=== PATIENT | female | born 1965 | race American Indian/Alaskan Native ===

== ENCOUNTER 2017-08-26 19:50 | Inpatient (IN) | payer MEDICARE ==
[2017-08-26] MEDS ORDERED: MORPHINE IV ONE (20:23)
[2017-08-26] MEDS ORDERED: TORADOL IV ONE (20:23)
[2017-08-26] MEDS ORDERED: ZOFRAN IV ONE (20:23)
[2017-08-26 20:41] LABS: Basophils % (Auto) 0.4 % (0.0-1.8); Eosinophils # (Auto) 0.1 K/mm3 (0.0-0.4); Eosinophils % (Auto) 0.8 % (0.0-4.3); Hematocrit 35.8 % (30.3-42.9); Hemoglobin 11.4 gm/dl (10.1-14.3); Lymphocytes # (Auto) 0.9 K/mm3 (1.2-5.4); Lymphocytes % (Auto) 8.2 % (13.4-35.0); Mean Corpuscular HGB Conc 32 % (30-34); Mean Corpuscular Hemoglobin 28 pg (28-32); Mean Corpuscular Volume 88 fl (79-97); Monocytes # (Auto) 1.2 K/mm3 (0.0-0.8); Monocytes % (Auto) 11.3 % (0.0-7.3); Platelet Count 216 K/mm3 (140-440); Red Blood Count 4.06 M/mm3 (3.65-5.03); Red Cell Distribution Width 14.3 % (13.2-15.2)
[2017-08-26] MEDS ORDERED: TYLENOL PO ONE (20:47)
--- NOTE | 2017-08-26 20:47 | XRay Report ---
FINAL REPORT PROCEDURE: Portable upright chest x-ray TECHNIQUE: Chest radiograph anteroposterior view. CPT 72343 HISTORY: Short of breath COMPARISON: No prior studies are available for comparison. FINDINGS: The heart is magnified due to projection although appears to be mildly enlarged. Pulmonary vasculature not significantly distended. Interstitial markings are diffusely coarsened. There is some patchy alveolar densities in the left upper lobe laterally also in the right and left lung bases. There is an asymmetric density in the apex of the right lung which appears to be pleural based measuring approximately 3.4 x 2.2 centimeters. This may represent additional infiltrate or atelectasis. I cannot exclude a small mass. IMPRESSION: Abnormal parenchymal densities visualized in both lungs as described suggesting scattered areas of atelectasis, infiltrates and/or parenchymal scarring/fibrosis. There is however a pleural-based density in the apex of the right lung as described. This may represent additional atelectasis or infiltrate however I cannot exclude a small mass. Consider short term follow-up chest x-ray to ensure this resolves or CT scan to evaluate the chest further. Cardiomegaly..
[2017-08-26] MEDS ORDERED: ROCEPHIN/NS 1 GM/50 ML 1 GM/50 ML BAG IV ONE (20:51)
[2017-08-26] MEDS ORDERED: ZITHROMAX 500 MG in NACL 0.9% 250ML 250 ML IV ONE (20:51)
[2017-08-26] MEDS ORDERED: NACL 0.9% 1000 ML 1,000 ML IV ONE (20:52)
[2017-08-26] MEDS ORDERED: XOPENEX IH ONE (20:53)
[2017-08-26] MEDS ORDERED: ATROVENT IH ONE (20:53)
[2017-08-26 21:15] LABS: Creatine Kinase MB 1.3 ng/mL (0.0-4.0)
[2017-08-26 21:17] LABS: BUN/Creatinine Ratio 20; Blood Urea Nitrogen 14 mg/dL (7-17); Calcium 9.2 mg/dL (8.4-10.2); Hemolysis Index 12
[2017-08-26] MEDS ORDERED: ROCEPHIN 1 GM in NACL 0.9% 20 ML IV ONE (22:00)
--- NOTE | 2017-08-26 23:03 | Emergency Department Report ---
ED Shortness of Breath HPI - General Chief Complaint: Dyspnea/Respdistress Stated Complaint: DENISSE Time Seen by Provider: 08/26/17 20:03 Source: patient Mode of arrival: Wheelchair Limitations: No Limitations - History of Present Illness Initial Comments: 52 year old female with a past medical history sarcoidosis, breast cancer currently remission and treated with left-sided mastectomy, and hypertension presents to the hospital complains of shortness of breath for a couple days it increased today. Symptoms worse with exertion. Patient had a right sided sharp pain radiating to the back that is worth with cough. Patient having a productive cough but denies fever. Patient takes 2 L of oxygen at home. Patient recently moved here from [place] August 08 and traveled via car. She denies calf tenderness or leg edema. Patient also complains of sore throat. Her transportation solutions manager is Dr. Pennington - Related Data Allergies Allergy/AdvReac Type Severity Reaction Status Date / Time morphine Allergy Anaphylaxis Verified 08/26/17 23:35 ED Review of Systems ROS: Stated complaint: DENISSE Other details as noted in HPI Comment: All other systems reviewed and negative Other: Constitutional: No fevers chills Eyes: No eye pain visual changes ENT: No ear pain or throat pain Neck: Denies pain Respiratory: as per hpi Cardiovascular: Denies palpitations, syncope GI: Denies abdominal pain, nausea, vomiting, diarrhea : Denies dysuria, urinary frequency, or urgency Musculoskeletal: Denies back pain, joint swelling Skin: Denies rash, lesions, erythema Neurologic: Denies headache, numbness, weakness Psychiatric: Denies suicidal ideation, hallucinations ED Past Medical Hx - Past Medical History Hx Hypertension: Yes Hx of Cancer: Yes (breast) Additional medical history: sarcoidosis - Surgical History Additional Surgical History: L mastectomy, hysterectomy - Social History Smoking Status: Former Smoker Substance Use Type: None ED Physical Exam - General Limitations: No Limitations - Other Other exam information: General: No limitations, mild respiratory distress Head exam: Atraumatic, normocephalic Eyes exam: Normal appearance ENT: Moist mucous membrane, normal oropharynx Neck exam: Normal inspection, full range of motion, no meningismus nontender Respiratory exam: Diminished breath sounds bilaterally with tachypnea and mild accessory muscle, able to speak in sentences Cardiovascular: Tachycardic regular rhythm Abdomen: Soft, nondistended, and nontender, with normal bowel sounds, no rebound, or guarding Extremity: Full range of motion normal inspection no deformity, no calf tenderness unilateral edema Back: Normal Inspection, full range of motion, no tenderness Neurologic: Alert, oriented x3, cranial nerves intact, no motor or sensory deficit Psychiatric: normal affect, normal mood Skin: Warm, dry, intact ED Course Vital Signs 08/26/17 08/26/17 08/26/17 19:42 19:51 19:52 Temperature Pulse Rate 118 H 120 H Pulse Rate [ Anterior Bilateral Throughout] Respiratory 32 H 17 Rate Respiratory Rate [Anterior Bilateral Throughout] Blood Pressure O2 Sat by Pulse 100 100 100 Oximetry 08/26/17 08/26/17 08/26/17 20:01 20:11 20:21 Temperature Pulse Rate 125 H 110 H 108 H Pulse Rate [ Anterior Bilateral Throughout] Respiratory 29 H 29 H 16 Rate Respiratory Rate [Anterior Bilateral Throughout] Blood Pressure 108/53 108/66 108/66 O2 Sat by Pulse 100 100 100 Oximetry 08/26/17 08/26/17 08/26/17 20:30 20:41 20:48 Temperature 100.9 F H Pulse Rate 107 H 101 H Pulse Rate [ Anterior Bilateral Throughout] Respiratory 20 24 Rate Respiratory Rate [Anterior Bilateral Throughout] Blood Pressure 104/60 104/60 O2 Sat by Pulse 100 100 Oximetry 08/26/17 08/26/17 08/26/17 21:01 21:21 21:56 Temperature Pulse Rate Pulse Rate [ 97 H 112 H Anterior Bilateral Throughout] Respiratory 26 H Rate Respiratory 20 19 Rate [Anterior Bilateral Throughout] Blood Pressure O2 Sat by Pulse 100 Oximetry ED Medical Decision Making - Lab Data Result diagrams: 08/26/17 20:07 08/26/17 20:07 Lab Results 08/26/17 08/26/17 08/26/17 Range/Units 20:07 20:07 20:07 WBC 10.5 (4.5-11.0) K/mm3 RBC 4.06 (3.65-5.03) M/mm3 Hgb 11.4 (10.1-14.3) gm/dl Hct 35.8 (30.3-42.9) % MCV 88 (79-97) fl MCH 28 (28-32) pg MCHC 32 (30-34) % RDW 14.3 (13.2-15.2) % Plt Count 216 (140-440) K/mm3 Lymph % (Auto) 8.2 L (13.4-35.0) % [place] % (Auto) 11.3 H (0.0-7.3) % Eos % (Auto) 0.8 (0.0-4.3) % Baso % (Auto) 0.4 (0.0-1.8) % Lymph # 0.9 L (1.2-5.4) K/mm3 [place] # 1.2 H (0.0-0.8) K/mm3 Eos # 0.1 (0.0-0.4) K/mm3 Baso # 0.0 (0.0-0.1) K/mm3 Seg Neutrophils % 79.3 H (40.0-70.0) % Seg Neutrophils # 8.3 H (1.8-7.7) K/mm3 D-Dimer 553.36 H (0-234) ng/mlDDU Sodium 144 (137-145) mmol/L Potassium 3.9 (3.6-5.0) mmol/L Chloride 98.3 (98-107) mmol/L Carbon Dioxide 26 (22-30) mmol/L Anion Gap 24 mmol/L BUN 14 (7-17) mg/dL Creatinine 0.7 (0.7-1.2) mg/dL Estimated GFR > 60 ml/min BUN/Creatinine Ratio 20 % Glucose 117 H (65-100) mg/dL Calcium 9.2 (8.4-10.2) mg/dL Total Creatine Kinase 71 (30-135) units/L CK-MB (CK-2) 1.3 (0.0-4.0) ng/mL CK-MB (CK-2) Rel Index 1.8 (0-4) Troponin T < 0.010 (0.00-0.029) ng/mL NT-Pro-B Natriuret Pep 2944 H (0-900) pg/mL - Radiology Data Radiology results: report reviewed read by radiologist Chest x-ray: Abnormal parenchymal density is visualized in both lungs as described suggesting scattered areas of atelectasis, infiltrates and/or parenchymal scarring/fibrosis. There is however a pleural based density in the apex of the right lung as described. This may represent additional atelectasis or infiltrate however mass cannot be excluded CT angiogram chest: study limited due to breathing motion artifact. No definite filling defects. Small bilateral pleural effusions right side greater than the left. There is diffuse mediastinal and hilar adenopathy as well as diffuse groundglass densities impression peribronchial densities bilaterally likely related to the patient's history of sarcoidosis. I cannot exclude superimposed acute infiltrates - Medical Decision Making Plan to admit patient to hospital for the treatment of infiltrates versus chronic scarring as well as associated pleural effusions with tachypnea, hypoxia , shortness of breath noted in the ED. Patient treated with nebs, Solu-Medrol, and antibiotics. Cultures pending. - Differential Diagnosis pneumonia, sarcoidosis, CHF, pleural effusion, bronchitis, sarcoidosis, PE Critical Care Time: No Critical care attestation.: If time is entered above; I have spent that time in minutes in the direct care of this critically ill patient, excluding procedure time. ED Disposition Clinical Impression: Dyspnea, Sarcoidosis, Pleural effusion, bilateral, Pulmonary infiltrates, Hx of breast cancer, Hypertension Disposition: OP ADMIT IP TO THIS HOSP Is pt being admited?: Yes Condition: Stable Time of Disposition: 00:13
--- NOTE | 2017-08-26 23:08 | Cat Scan Report ---
FINAL REPORT PROCEDURE: CT ANGIO CHEST TECHNIQUE: Computerized tomographic angiography of the chest was performed during the IV injection of iodinated nonionic contrast including image processing. The image data was postprocessed using 2-dimensional multiplanar reformatted (MPR) and 3-dimensional (MIP and/or volume rendered) techniques. HISTORY: sob,hx of sarcoid COMPARISON: No prior studies are available for comparison. FINDINGS: Pulmonary outflow tract, right and left main pulmonary arteries and their proximal branches: The pulmonary outflow tract right and left main pulmonary arteries are well-visualized and appear clear. Peripheral branches are less well visualized due to breathing motion artifact. No definite filling defects are seen that would suggest pulmonary embolus. Pericardium: No evidence of pericardial effusion. Thoracic aorta: No evidence of aneurysmal dilatation or dissection. Coronary arteries: Are partially calcified indicating atherosclerotic disease. Mediastinum and hilar regions: There is extensive adenopathy throughout the hilar and mediastinal regions with lymph nodes measuring up to 2.6 x 1.3 centimeters. Lung [place]: Small bilateral pleural effusions are visualized. The right side is larger than the left. Extensive ground-glass densities scattered throughout both lungs. There is mild increased peribronchial density in the right upper lobe. No dense consolidation are identified. Upper abdomen: No acute or focal abnormality is seeen. Other: No acute bony abnormalities are identified. Decreased density and prominent vertically oriented trabecula I seen in the T12 vertebral body suggesting vertebral body hemangioma measuring 2.4 centimeter transverse, 1.9 centimeter AP and 1.4 centimeter craniocaudal dimension.. IMPRESSION: Limited study due to breathing motion artifact. No definite filling defects are seen that would suggest pulmonary embolus. There are small bilateral pleural effusions right side greater than left. There is diffuse mediastinal and hilar adenopathy as well as diffuse ground-glass densities and patchy peribronchial densities bilaterally likely related to the patient's history of sarcoidosis. I cannot exclude superimposed acute infiltrates.
[2017-08-27] MEDS ORDERED: MILK OF MAGNESIA PO PRN (00:57)
[2017-08-27] MEDS ORDERED: ZOFRAN IV PRN (00:57)
[2017-08-27] MEDS ORDERED: TYLENOL PO PRN (00:57)
[2017-08-27] MEDS ORDERED: DULCOLAX PR PRN (00:57)
--- NOTE | 2017-08-27 01:01 | History and Physical Report ---
History of Present Illness Date of examination: 08/27/17 History of present illness: 52-year-old woman with a history of sarcoidosis, on home oxygen, hypertension, breast cancer comes emergency room with complaints of shortness of breath that started 3 days ago. Also complaining of a nonproductive cough, subjective fever and chills. Her primary. Started her on azithromycin yesterday and today cough syrup which she has not started taking. Review Of Systems: Constitutional: no weight loss Ears, eyes, nose, mouth and throat: no nasal congestion, no nasal discharge, no sinus pressure, blurry vision, diplopia Neck: No neck pain or rigidity. Cardiovascular: No chest pain, palpitations Respiratory: + shortness of breath, cough Gastrointestinal: No abdominal pain, hematochezia Genitourinary : no dysuria, frequency , hematuria Musculoskeletal: no muscle ache Integumentary: no rash, no pruritis Neurological: no parathesias, focal weakness Endocrine: no cold or heat intolerance, no polyuria or polydipsia Hematologic/Lymphatic: no easy bruising, no easy bleeding, no gland swelling Allergic/Immunologic: no urticaria, no angioedema. PAST MEDICAL HISTORY:sarcoidosis, hypertension, breast cancer PAST SURGICAL HISTORY: Left mastectomy, hysterectomy FAMILY HISTORY:hypertension SOCIAL HISTORY: Denies alcohol, tobacco, drugs Medications and Allergies Allergies Allergy/AdvReac Type Severity Reaction Status Date / Time morphine Allergy Anaphylaxis Verified 08/26/17 23:35 Active Meds: Active Medications Sodium Chloride (Nacl 0.9% 1000 Ml) 1,000 mls @ 125 mls/hr IV ONCE ONE Stop: 08/27/17 04:51 Last Admin: 08/26/17 22:33 Dose: Not Given Exam - Physical Exam Narrative exam: Gen. appearance: Patient lying in bed in no acute distress HEENT: Normocephalic/atraumatic, pupils equal round reactive to light, extra occular movement intact, no scleral icterus, no JVD or thyromegaly or nodule, neck is supple, mucous membrane moist, no erythema or exudate Heart: S1-S2, regular rate and rhythm Lungs: Wheezing bilateral breathing comfortable Abdomen: Positive bowel sounds, nontender, nondistended, no organomegaly Extremities: No edema, cyanosis, clubbing Neuro:: Oriented 3 , cranial nerves II-12 intact, speech, motor intact Skin: No rash, nodules, warm dry - Constitutional Vitals: Temp Pulse Resp BP Pulse Ox 100.9 F H 112 H 19 104/60 100 08/26/17 20:48 08/26/17 21:56 08/26/17 21:56 08/26/17 20:41 08/26/17 21:01 Results - Labs CBC & Chem 7: 08/26/17 20:07 08/26/17 20:07 Labs: Abnormal lab results 08/26/17 08/26/17 08/26/17 Range/Units 20:07 20:07 20:07 Lymph % (Auto) 8.2 L (13.4-35.0) % [place] % (Auto) 11.3 H (0.0-7.3) % Lymph # 0.9 L (1.2-5.4) K/mm3 [place] # 1.2 H (0.0-0.8) K/mm3 Seg Neutrophils % 79.3 H (40.0-70.0) % Seg Neutrophils # 8.3 H (1.8-7.7) K/mm3 D-Dimer 553.36 H (0-234) ng/mlDDU Glucose 117 H (65-100) mg/dL NT-Pro-B Natriuret Pep 2944 H (0-900) pg/mL - Imaging and Cardiology EKG: image reviewed Chest x-ray: image reviewed CT scan - chest: report reviewed Assessment and Plan Assessment Acute bronchitis Hypertension Sarcoidosis Breast cancer Plan Admit to medicine Start high-dose steroids, azithromycin, nebulizer treatments Continue appropriate outpatient medications DVT prophylaxis
[2017-08-27] MEDS: DUONEB *Not for PRN Use IH SCH ×4 (02:53→19:58)
[2017-08-27] MEDS ORDERED: DUONEB *Not for PRN Use IH ONE (02:54)
[2017-08-27] MEDS ORDERED: ZITHROMAX 500 MG in NACL 0.9% 250ML 250 ML IV ONE (10:00)
[2017-08-27] MEDS: LOVENOX SUB-Q SCH (10:23)
[2017-08-27] MEDS ORDERED: MOTRIN PO PRN (13:24)
[2017-08-27] MEDS: THERAGRAN-M Tab PO SCH (15:30)
--- NOTE | 2017-08-27 17:19 | Event Note ---
Date: 08/27/17 Patient was seen and evaluated this morning, patient of admissions this morning , continue management per H/P.
[2017-08-27] MEDS: GUAIFENESIN DM SYRUP PO PRN (20:50)
[2017-08-28] MEDS: DUONEB *Not for PRN Use IH SCH ×4 (02:10→21:02)
[2017-08-28 06:19] LABS: Hemoglobin 10.1 gm/dl (10.1-14.3); Mean Corpuscular HGB Conc 33 % (30-34); Mean Corpuscular Hemoglobin 29 pg (28-32); Mean Corpuscular Volume 88 fl (79-97); Platelet Count 204 K/mm3 (140-440); Red Blood Count 3.54 M/mm3 (3.65-5.03); Red Cell Distribution Width 14.2 % (13.2-15.2)
[2017-08-28 06:37] LABS: BUN/Creatinine Ratio 23; Blood Urea Nitrogen 14 mg/dL (7-17); Hemolysis Index 3
[2017-08-28 07:37] LABS: Basophils % (Manual) 0 % (0.0-1.8); Eosinophils % (Manual) 0 % (0.0-4.3); Total Cells Counted 100
[2017-08-28 07:38] LABS: Anisocytosis 1+; Hypochromasia 1+; Large Platelets Few
[2017-08-28] MEDS: LOVENOX SUB-Q SCH (09:23)
[2017-08-28] MEDS: THERAGRAN-M Tab PO SCH (09:23)
[2017-08-28] MEDS: ZESTRIL PO SCH (09:49)
[2017-08-28] MEDS: PROTONIX PO SCH (09:49)
[2017-08-28] MEDS: LASIX PO SCH (09:49)
[2017-08-28] MEDS: K-DUR PO SCH (09:49)
[2017-08-28] MEDS: CLARITIN PO SCH (09:49)
[2017-08-28] MEDS ORDERED: POTASSIUM 20 MEQ PO SCH (10:00)
[2017-08-28] MEDS ORDERED: FLUTICASONE INTRANASAL SCH (10:00)
[2017-08-28] MEDS ORDERED: NON-FORMULARY (Lisinopril 20 MG) PO SCH (10:00)
[2017-08-28] MEDS ORDERED: NON-FORMULARY (Cetirizine Hcl 10 MG) PO SCH (10:00)
[2017-08-28] MEDS ORDERED: NON-FORMULARY (Omeprazole 40 MG) PO SCH (10:00)
[2017-08-28] MEDS: LEVAQUIN 750MG/150ML 750 MG/150 ML BAG IV SCH (11:29)
[2017-08-28] MEDS: FLONASE NS SCH (12:31)
--- NOTE | 2017-08-28 15:45 | Consultation ---
History of Present Illness Consult date: 08/28/17 Reason for consult: other (he was finallyFinal congestive in the hospital his hospital stay and assuming will be on U was reviewed. A 2, who presents with a 1 mm to be 183 divided understand why the) History of present illness: This 52 year old female admitted with shortness of breath and cough.Patient has a history of breast CA and Left Mastectomy.Patient also complaining right sided pleuritic chest pain.Patient recently travelled from [place]. Patient denies leg swelling or calf tenderness. Angio CT of chest Reported no PE. Extensive mediastinal and hilar adenopathy and parenchymal infiltrates.Patient also has history smoking 1 pack a day x 15 years. Stopped smoking in year 1999. 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 Past History Past Medical History: hypertension, sarcoidosis, other (History of breat CA.) Past Surgical History: mastectomy (Left Mastectomy.) Medications and Allergies Allergies Allergy/AdvReac Type Severity Reaction Status Date / Time morphine Allergy Anaphylaxis Verified 08/26/17 23:35 Home Medications Medication Instructions Recorded Confirmed Last Taken Type Albuterol 2.5 mg INHALATION Q4H PRN 08/28/17 08/28/17 08/27/17 10:00 History 2.5 mg Cetirizine HCl 10 mg PO DAILY 08/28/17 08/28/17 08/27/17 10:00 History 10 mg Fluticasone 1 spray INTRANASAL DAILY 08/28/17 08/28/17 08/27/17 10:00 History 1 spray Furosemide [Lasix TAB] 40 mg PO QDAY 08/28/17 08/28/17 08/27/17 10:00 History 40 mg Lisinopril 20 mg PO DAILY 08/28/17 08/28/17 08/27/17 10:00 History 20 mg Omeprazole 40 mg PO DAILY 08/28/17 08/28/17 08/26/17 10:00 History 40 mg Potassium 20 meq PO DAILY 08/28/17 08/28/17 08/27/17 10:00 History 20 meq Prednisone [predniSONE 10 mg 10 tab PO DAILY 08/28/17 08/28/17 08/27/17 10:00 History (6-Day Pack, 21 Tabs)] 10 mg Active Meds: Active Medications Acetaminophen (Tylenol) 650 mg PO Q4H PRN PRN Reason: Pain MILD(1-3)/Fever >100.5/[place] Albuterol/Ipratropium (Duoneb *Not For Prn Use*) 1 ampul IH Q6HRT [facility] Last Admin: 08/28/17 13:28 Dose: 1 ampul Bisacodyl (Dulcolax) 10 mg OR QDAY PRN PRN Reason: Constipation unrelieved by MOM Enoxaparin Sodium (Lovenox) 40 mg SUB-Q QDAY [facility] Last Admin: 08/28/17 09:23 Dose: 40 mg Fluticasone Propionate (Flonase) 50 mcg NS QDAY [facility] Last Admin: 08/28/17 12:31 Dose: 50 mcg Furosemide (Lasix) 40 mg PO QDAY [facility] Last Admin: 08/28/17 09:49 Dose: 40 mg Guaifenesin (Guaifenesin Dm Syrup) 20 ml PO Q4H PRN PRN Reason: Cough Last Admin: 08/27/17 20:50 Dose: 20 ml Levofloxacin/Dextrose (Levaquin 750mg/150ml) 750 mg in 150 mls @ 100 mls/hr IV Q24HR [facility] PRN Reason: Protocol Last Admin: 08/28/17 11:29 Dose: 100 mls/hr Ibuprofen (Motrin) 400 mg PO Q6H PRN PRN Reason: Pain, Mild (1-3) Last Admin: 08/27/17 15:30 Dose: 400 mg Lisinopril (Zestril) 20 mg PO QDAY [facility] Last Admin: 08/28/17 09:49 Dose: 20 mg Loratadine (Claritin) 10 mg PO DAILY [facility] Last Admin: 08/28/17 09:49 Dose: 10 mg Magnesium Hydroxide (Milk Of Magnesia) 30 ml PO Q4H PRN PRN Reason: Constipation Methylprednisolone Sodium Succinate (Solu-Medrol) 80 mg IV Q6H [facility] Last Admin: 08/28/17 11:29 Dose: Not Given Multivitamins/Minerals (Theragran-M Tab) 1 each PO QDAY [facility] Last Admin: 08/28/17 09:23 Dose: 1 each Ondansetron HCl (Zofran) 4 mg IV Q8H PRN PRN Reason: N/V unrelieved by Reglan Pantoprazole Sodium (Protonix) 40 mg PO DAILY [facility] Last Admin: 08/28/17 09:49 Dose: 40 mg Potassium Chloride (K-Dur) 20 meq PO QDAY [facility] Last Admin: 08/28/17 09:49 Dose: 20 meq Review of Systems Constitutional: fatigue Respiratory: cough, shortness of breath, pain on inspiration Physical Examination Vital signs: Vital Signs Pulse Ox 100 08/26/17 19:42 General appearance: no acute distress, alert Eyes: non-icteric ENT: oropharynx moist Neck: supple, no JVD Ascultation: Bilateral: rhonchi (Ocasional rhonchi) Cardiovascular: regular rate and rhythm Gastrointestinal: normoactive bowel sounds Integumentary: normal Extremities: no cyanosis, no edema Musculoskeletal: no deformities normal mental status, non-focal exam, pupils equal and round, CN II-XII normal anxious Results - Laboratory Findings CBC and BMP: 08/28/17 05:26 08/28/17 05:26 PT/INR, D-dimer D-Dimer 553.36 ng/mlDDU (0-234) H 08/26/17 20:07 Abnormal lab findings: Abnormal Labs 08/26/17 08/26/17 08/26/17 20:07 20:07 20:07 WBC RBC Lymph % (Auto) 8.2 L [place] % (Auto) 11.3 H Lymph # 0.9 L [place] # 1.2 H Seg Neutrophils % 79.3 H Seg Neuts % (Manual) Lymphocytes % (Manual) Seg Neutrophils # 8.3 H Seg Neutrophils # Man Lymphocytes # (Manual) D-Dimer 553.36 H Creatinine Glucose 117 H NT-Pro-B Natriuret Pep 2944 H 08/28/17 08/28/17 05:26 05:26 WBC 14.2 H RBC 3.54 L Lymph % (Auto) [place] % (Auto) Lymph # [place] # Seg Neutrophils % Seg Neuts % (Manual) 79.0 H Lymphocytes % (Manual) 5.0 L Seg Neutrophils # Seg Neutrophils # Man 11.2 H Lymphocytes # (Manual) 0.7 L D-Dimer Creatinine 0.6 L Glucose 160 H NT-Pro-B Natriuret Pep - Diagnostic Findings Chest x-ray: report reviewed (bilateral parenchymal infiltrates.), image reviewed CT scan - chest: report reviewed (Extensive bilateral and mediastinal adenopathy , Parenchymal infiltrates.), image reviewed Assessment and Plan This 52 year old female admitted with shortness of breath and cough.Patient has a history of breast CA and Left Mastectomy.Patient also complaining right sided pleuritic chest pain.Patient recently travelled from [place]. Patient denies leg swelling or calf tenderness. Angio CT of chest Reported no PE. Extensive mediastinal and hilar adenopathy and parenchymal infiltrates.Patient also has history smoking 1 pack a day x 15 years. Stopped smoking in year 1999. 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 - Patient Problems (1) Dyspnea Current Visit: Yes Status: Acute Plan to address problem: O2 2 litres via nasal canula. Albuterol/atrovent aerosol treatments q 6 hours. Continue I/V solumedral Continue S/C Lovenox. Continue Protonix. (2) Pulmonary infiltrates Current Visit: Yes Status: Acute Plan to address problem: Patient is on Levaquine. (3) Sarcoidosis Current Visit: Yes Status: Acute Plan to address problem: Continue I/V solumedral Obtaining CAROLINE level (4) Hx of breast cancer Current Visit: Yes Status: Acute Plan to address problem: Patient has Left mastectomy. No recurrence of breast CA. (5) Hypertension Current Visit: Yes Status: Acute Plan to address problem: Management as per primary care.
--- NOTE | 2017-08-28 16:17 | Progress Note ---
Assessment and Plan Assessment and plan: 52-year-old -[place]ian female with medical history significant for sarcoidosis Pulmonary sarcoidosis - CT showed involvement of the lung and lymph nodes - Patient is on Solu-Medrol - Pulmonary consulted Suspected bronchitis - On Levaquin Hypertension - Continue home medications Patient said had history of fluid overload - Continue home dose of Lasix DVT prophylaxis - chemical Disposition - Possibly discharge tomorrow after pulmonary evaluation History Interval history: Patient was seen and evaluated this morning, patient has attitude, complaining about everything. Not complaining any SOB, or chest pain. Hospitalist Physical - Physical exam Narrative exam: Not in cardiopulmonary distress. The patient appeared well nourished and normally developed. Vital signs as documented. Head exam is unremarkable. No scleral icterus . Neck is without jugular venous distension, thyromegaly, or carotid bruits. Lungs are clear to auscultation. Cardiac exam reveals regular rate and Rhythm. First and second heart sounds normal. No murmurs, rubs or gallops. Abdominal exam reveals normal bowel sounds, no masses, no organomegaly and no aortic enlargement. Extremities are nonedematous and both femoral and pedal pulses are normal. BODY ENGINEER: Alert and oriented 3. No focal weakness. - Constitutional Vitals: Temp Pulse Resp BP Pulse Ox 98.5 F 103 H 18 105/67 96 08/28/17 07:55 08/28/17 13:36 08/28/17 13:36 08/28/17 07:55 08/28/17 08:08 Results - Labs CBC & Chem 7: 08/28/17 05:26 08/28/17 05:26 Labs: Laboratory Last Values WBC 14.2 K/mm3 (4.5-11.0) H 08/28/17 05:26 RBC 3.54 M/mm3 (3.65-5.03) L 08/28/17 05:26 Hgb 10.1 gm/dl (10.1-14.3) 08/28/17 05:26 Hct 31.0 % (30.3-42.9) 08/28/17 05:26 MCV 88 fl (79-97) 08/28/17 05:26 MCH 29 pg (28-32) 08/28/17 05:26 MCHC 33 % (30-34) 08/28/17 05:26 RDW 14.2 % (13.2-15.2) 08/28/17 05:26 Plt Count 204 K/mm3 (140-440) 08/28/17 05:26 Lymph % (Auto) 8.2 % (13.4-35.0) L 08/26/17 20:07 Har[place]on % (Auto) 11.3 % (0.0-7.3) H 08/26/17 20:07 Eos % (Auto) 0.8 % (0.0-4.3) 08/26/17 20:07 Baso % (Auto) 0.4 % (0.0-1.8) 08/26/17 20:07 Lymph # 0.9 K/mm3 (1.2-5.4) L 08/26/17 20:07 Haralson # 1.2 K/mm3 (0.0-0.8) H 08/26/17 20:07 Eos # 0.1 K/mm3 (0.0-0.4) 08/26/17 20:07 Baso # 0.0 K/mm3 (0.0-0.1) 08/26/17 20:07 Add Manual Diff Complete 08/28/17 05:26 Total Counted 100 08/28/17 05:26 Seg Neutrophils % Senior Design Engineering Specialist 08/28/17 05:26 Seg Neuts % (Manual) 79.0 % (40.0-70.0) H 08/28/17 05:26 Band Neutrophils % 14.0 % 08/28/17 05:26 Lymphocytes % (Manual) 5.0 % (13.4-35.0) L 08/28/17 05:26 Reactive Lymphs % (Man) 0 % 08/28/17 05:26 Monocytes % (Manual) 2.0 % (0.0-7.3) 08/28/17 05:26 Eosinophils % (Manual) 0 % (0.0-4.3) 08/28/17 05:26 Basophils % (Manual) 0 % (0.0-1.8) 08/28/17 05:26 Metamyelocytes % 0 % 08/28/17 05:26 Myelocytes % 0 % 08/28/17 05:26 Promyelocytes % 0 % 08/28/17 05:26 Blast Cells % 0 % 08/28/17 05:26 Nucleated RBC % Not Reportable 08/28/17 05:26 Seg Neutrophils # 8.3 K/mm3 (1.8-7.7) H 08/26/17 20:07 Seg Neutrophils # Man 11.2 K/mm3 (1.8-7.7) H 08/28/17 05:26 Band Neutrophils # 2.0 K/mm3 08/28/17 05:26 Lymphocytes # (Manual) 0.7 K/mm3 (1.2-5.4) L 08/28/17 05:26 Abs React Lymphs (Man) 0.0 K/mm3 08/28/17 05:26 Monocytes # (Manual) 0.3 K/mm3 (0.0-0.8) 08/28/17 05:26 Eosinophils # (Manual) 0.0 K/mm3 (0.0-0.4) 08/28/17 05:26 Basophils # (Manual) 0.0 K/mm3 (0.0-0.1) 08/28/17 05:26 Metamyelocytes # 0.0 K/mm3 08/28/17 05:26 Myelocytes # 0.0 K/mm3 08/28/17 05:26 Promyelocytes # 0.0 K/mm3 08/28/17 05:26 Blast Cells # 0.0 K/mm3 08/28/17 05:26 WBC Morphology Not Reportable 08/28/17 05:26 Hypersegmented Neuts Not Reportable 08/28/17 05:26 Hyposegmented Neuts Not Reportable 08/28/17 05:26 Hypogranular Neuts Not Reportable 08/28/17 05:26 Smudge Cells Not Reportable 08/28/17 05:26 Toxic Granulation Not Reportable 08/28/17 05:26 Toxic Vacuolation Not Reportable 08/28/17 05:26 Dohle Bodies Not Reportable 08/28/17 05:26 Pelger-Huet Anomaly Not Reportable 08/28/17 05:26 Maribell Rods Not Reportable 08/28/17 05:26 Platelet Estimate Appears normal 08/28/17 05:26 Clumped Platelets Not Reportable 08/28/17 05:26 Plt Clumps, EDTA Not Reportable 08/28/17 05:26 Large Platelets Few 08/28/17 05:26 Giant Platelets Not Reportable 08/28/17 05:26 Platelet Satelliting Not Reportable 08/28/17 05:26 Plt Morphology Comment Not Reportable 08/28/17 05:26 RBC Morphology Not Reportable 08/28/17 05:26 Dimorphic RBCs Not Reportable 08/28/17 05:26 Polychromasia Not Reportable 08/28/17 05:26 Hypochromasia 1+ 08/28/17 05:26 Poikilocytosis Not Reportable 08/28/17 05:26 Anisocytosis 1+ 08/28/17 05:26 Microcytosis Not Reportable 08/28/17 05:26 Macrocytosis Not Reportable 08/28/17 05:26 Spherocytes Not Reportable 08/28/17 05:26 Pappenheimer Bodies Not Reportable 08/28/17 05:26 Sickle Cells Not Reportable 08/28/17 05:26 Target Cells Not Reportable 08/28/17 05:26 Tear Drop Cells Not Reportable 08/28/17 05:26 Ovalocytes Not Reportable 08/28/17 05:26 Helmet Cells Not Reportable 08/28/17 05:26 [place] Bodies Not Reportable 08/28/17 05:26 Angel Fire Rings Not Reportable 08/28/17 05:26 [place] Cells Not Reportable 08/28/17 05:26 Bite Cells Not Reportable 08/28/17 05:26 Crenated Cell Not Reportable 08/28/17 05:26 Elliptocytes Not Reportable 08/28/17 05:26 Acanthocytes (Spur) Not Reportable 08/28/17 05:26 Rouleaux Not Reportable 08/28/17 05:26 Hemoglobin C Crystals Not Reportable 08/28/17 05:26 Schistocytes Not Reportable 08/28/17 05:26 Malaria parasites Not Reportable 08/28/17 05:26 Myles Bodies Not Reportable 08/28/17 05:26 Hem Pathologist Commnt No 08/28/17 05:26 D-Dimer 553.36 ng/mlDDU (0-234) H 08/26/17 20:07 Sodium 140 mmol/L (137-145) 08/28/17 05:26 Potassium 4.4 mmol/L (3.6-5.0) 08/28/17 05:26 Chloride 99.1 mmol/L (98-107) 08/28/17 05:26 Carbon Dioxide 28 mmol/L (22-30) 08/28/17 05:26 Anion Gap 17 mmol/L 08/28/17 05:26 BUN 14 mg/dL (7-17) 08/28/17 05:26 Creatinine 0.6 mg/dL (0.7-1.2) L 08/28/17 05:26 Estimated GFR > 60 ml/min 08/28/17 05:26 BUN/Creatinine Ratio 23 % 08/28/17 05:26 Glucose 160 mg/dL (65-100) H 08/28/17 05:26 Calcium 9.0 mg/dL (8.4-10.2) 08/28/17 05:26 Total Creatine Kinase 71 units/L (30-135) 08/26/17 20:07 CK-MB (CK-2) 1.3 ng/mL (0.0-4.0) 08/26/17 20:07 CK-MB (CK-2) Rel Index 1.8 (0-4) 08/26/17 20:07 Troponin T < 0.010 ng/mL (0.00-0.029) 08/26/17 20:07 NT-Pro-B Natriuret Pep 2944 pg/mL (0-900) H 08/26/17 20:07
[2017-08-28] MEDS: GUAIFENESIN DM SYRUP PO PRN (18:40)
[2017-08-28] MEDS: PERCOCET 5/325 PO PRN (20:25)
[2017-08-29] MEDS: DUONEB *Not for PRN Use IH SCH ×3 (02:19→15:51)
[2017-08-29] MEDS: PERCOCET 5/325 PO PRN (08:24)
[2017-08-29] MEDS: GUAIFENESIN DM SYRUP PO PRN (08:25)
[2017-08-29 08:40] VITALS: BP 107/58
[2017-08-29] MEDS: THERAGRAN-M Tab PO SCH (09:57)
[2017-08-29] MEDS: PROTONIX PO SCH (09:57)
[2017-08-29] MEDS: FLONASE NS SCH (09:57)
[2017-08-29] MEDS: CLARITIN PO SCH (09:57)
[2017-08-29] MEDS: K-DUR PO SCH (09:57)
[2017-08-29] MEDS: LASIX PO SCH (09:57)
[2017-08-29] MEDS: LEVAQUIN 750MG/150ML 750 MG/150 ML BAG IV SCH (09:58)
[2017-08-29] MEDS: ZESTRIL PO SCH (09:59)
[2017-08-29] MEDS: LOVENOX SUB-Q SCH (09:59)
--- NOTE | 2017-08-29 10:27 | Discharge Summary ---
Providers - Providers Date of Admission: 08/27/17 00:57 Date of discharge: 08/29/17 Attending physician: MARTINA ELLIOTT MD 08/28/17 08:58 Consult to Physician [CONS] Routine Consulting Provider: SAVAGE MCGUIRE Reason For Exam: sarcodosis Place consult to:: answering service Notified:: yes Phone number called:: [phone] Was contact made?: Yes If yes, spoke with:: DR Pitt Time called:: 09:00 Primary care physician: VANNESSA SALEH Hospitalization Reason for admission: Acute hypoxic respiratory failure Condition: Stable Pertinent studies: Chest x-ray Abnormal parenchymal densities visualized in both lungs suggesting scattered areas of atelectasis, infiltrates and/or parenchymal scarring/fibrosis. CTA Negative for PE There are small bilateral pleural effusions right side greater than left. There is diffuse mediastinal and hilar adenopathy as well as diffuse ground- glass densities and patchy peribronchial densities bilaterally likely related to the patient's history of sarcoidosis. Cannot exclude superimposed acute infiltrates. Hospital course: Admission HPI 52-year-old woman with a history of sarcoidosis, on home oxygen, hypertension, breast cancer comes emergency room with complaints of shortness of breath that started 3 days ago. Also complaining of a nonproductive cough, subjective fever and chills. Her PCP Started her on azithromycin yesterday and today cough syrup which she has not started taking. Patient was admitted to the floor and she was managed with IV Solu-Medrol, Levaquin, nebulizer treatment, oxygen support and patient showed some improvement. Pulmonary consult appreciated. Patient is complaining about everything and disrespectful to the medical staff. Patient was hemodynamically stable at time of discharge. Saturating the mid 90s with 2 L of oxygen. Patient has follow-up with cylinder worker and advised to continue follow-up. Patient is discharged with advice to continue the steroid what she had at home, given Levaquin and cough syrup. Disposition: - TO HOME OR SELFCARE Time spent for discharge: 31 minutes - Discharge Diagnoses (1) Dyspnea Status: Acute (2) Hx of breast cancer Status: Acute (3) Hypertension Status: Acute (4) Pulmonary infiltrates Status: Acute (5) Sarcoidosis Status: Acute (6) Pleural effusion, bilateral Status: Acute Comment: small Core Measure Documentation - Palliative Care Palliative Care/ Comfort Measures: Not Applicable - Core Measures Any of the following diagnoses?: none Exam - Physical Exam Narrative exam: Not in cardiopulmonary distress. The patient appeared well nourished and normally developed. Vital signs as documented. Head exam is unremarkable. No scleral icterus . Neck is without jugular venous distension, thyromegaly, or carotid bruits. Lungs are clear to auscultation. Cardiac exam reveals regular rate and Rhythm. First and second heart sounds normal. No murmurs, rubs or gallops. Abdominal exam reveals normal bowel sounds, no masses, no organomegaly and no aortic enlargement. Extremities are nonedematous and both femoral and pedal pulses are normal. FRENCH PASTRY COOK: Alert and oriented 3. No focal weakness. - Constitutional Vitals: Temp Pulse Resp BP Pulse Ox 97.8 F 87 24 107/58 97 08/29/17 07:39 08/29/17 07:39 08/29/17 07:39 08/29/17 07:39 08/29/17 07:39 Plan Activity: no restrictions Weight Bearing Status: Full Weight Bearing Diet: low cholesterol, low salt Follow up with: VANNESSA SALEH MD [Primary Care Provider] - 7 Days Prescriptions: Levofloxacin [Levaquin TAB] 500 mg PO QDAY #5 tablet oxyCODONE /ACETAMINOPHEN [Percocet 5/325] 1 tab PO Q6HR PRN #12 tablet PRN Reason: Pain
--- NOTE | 2017-08-29 14:17 | Progress Note ---
Assessment and Plan This 52 year old female admitted with shortness of breath and cough.Patient has a history of breast CA and Left Mastectomy.Patient also complaining right sided pleuritic chest pain.Patient recently travelled from [place]. Patient denies leg swelling or calf tenderness. Angio CT of chest Reported no PE. Extensive mediastinal and hilar adenopathy and parenchymal infiltrates.Patient also has history smoking 1 pack a day x 15 years. Stopped smoking in year 1999. 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 08/29/17 Patient says breathing better . No complaint of chest pain or shortness of breath.O2 saturation 92% on 3 litres O2.Patient said she already has home O2.Patient does not want me to check ABGs.Benito level pending.Patient wants to go home.Can go home pulmonary point of view on Po antibiotics, PO prednisone and aerosolized broncholdilators; She will follow with her sap data architect in 1 week. Recommend repeat chest xray in 1 week. - Patient Problems (1) Dyspnea Current Visit: Yes Status: Acute Plan to address problem: O2 3 litres via nasal canula. Albuterol/atrovent aerosol treatments q 6 hours. Continue I/V solumedral Continue S/C Lovenox. Continue Protonix. (2) Pulmonary infiltrates Current Visit: Yes Status: Acute Plan to address problem: Patient is on Levaquine. (3) Sarcoidosis Current Visit: Yes Status: Acute Plan to address problem: Continue I/V solumedral Obtaining BENITO level (4) Hx of breast cancer Current Visit: Yes Status: Acute Plan to address problem: Patient has Left mastectomy. No recurrence of breast CA. (5) Hypertension Current Visit: Yes Status: Acute Plan to address problem: Management as per primary care. Subjective Date of service: 08/29/17 Interval history: Patient says breathing better . No complaint of chest pain or shortness of breath.O2 saturation 92% on 3 litres O2.Patient said she already has home O2.Patient does not want me to check ABGs.Benito level pending. Patient wants to go home.Can go home from pulmonary point of view on Po antibiotics, PO prednisone and aerosolized broncholdilators; She will follow with her sap data architect in 1 week. Recommend repeat chest xray in 1 week. Objective Vital Signs - 12hr 08/29/17 08/29/17 08/29/17 07:39 10:00 10:15 Temperature 97.8 F Pulse Rate 87 Pulse Rate [ Anterior Bilateral Throughout] Pulse Rate [ 104 H Posterior Bilateral] Respiratory 24 Rate Respiratory Rate [Anterior Bilateral Throughout] Respiratory 16 Rate [Posterior Bilateral] Blood Pressure 107/58 O2 Sat by Pulse 97 92 Oximetry 08/29/17 10:25 Temperature Pulse Rate Pulse Rate [ 106 H Anterior Bilateral Throughout] Pulse Rate [ Posterior Bilateral] Respiratory Rate Respiratory 16 Rate [Anterior Bilateral Throughout] Respiratory Rate [Posterior Bilateral] Blood Pressure O2 Sat by Pulse Oximetry Constitutional: no acute distress, alert Eyes: non-icteric ENT: oropharynx moist Neck: supple, no JVD Ascultation: Bilateral: rhonchi (Ocasional rhonchi) Cardiovascular: regular rate and rhythm Gastrointestinal: normoactive bowel sounds Integumentary: normal Extremities: no cyanosis, no edema Neurologic: normal mental status, non-focal exam, pupils equal and round, CN II- XII normal Psychiatric: anxious CBC and BMP: 08/28/17 05:26 08/28/17 05:26 ABG, PT/INR, D-dimer: PT/INR, D-dimer D-Dimer 553.36 ng/mlDDU (0-234) H 08/26/17 20:07 Abnormal lab findings: Abnormal Labs 08/26/17 08/26/17 08/26/17 20:07 20:07 20:07 WBC RBC Lymph % (Auto) 8.2 L Osborne % (Auto) 11.3 H Lymph # 0.9 L [place]borne # 1.2 H Seg Neutrophils % 79.3 H Seg Neuts % (Manual) Lymphocytes % (Manual) Seg Neutrophils # 8.3 H Seg Neutrophils # Man Lymphocytes # (Manual) D-Dimer 553.36 H Creatinine Glucose 117 H NT-Pro-B Natriuret Pep 2944 H 08/28/17 08/28/17 05:26 05:26 WBC 14.2 H RBC 3.54 L Lymph % (Auto) Osborne % (Auto) Lymph # Osborne # Seg Neutrophils % Seg Neuts % (Manual) 79.0 H Lymphocytes % (Manual) 5.0 L Seg Neutrophils # Seg Neutrophils # Man 11.2 H Lymphocytes # (Manual) 0.7 L D-Dimer Creatinine 0.6 L Glucose 160 H NT-Pro-B Natriuret Pep
--- NOTE | 2017-09-04 14:34 | Query-Infection ---
Dear ____Judy Date:__09/04/17 Senior Mobile Solutions Architect/CDS:____Ciara / Jaylen Phone#:__[phone] Exercise your independent professional judgment when responding to this query. Questions asked do not imply a particular answer is desired or expected. We greatly appreciate your clarification on this issue. Clinical Documentation States: 52 year old female was admitted on 08/27/17 The progress note (Dr. Kim 08/28/17) states " 52-year-old -[place] female with medical history significant for sarcoidosis Pulmonary sarcoidosis Suspected bronchitis - On Levaquin " WBC: 14.2 Temperature: 100.9 Respiratory rate: 32 Pulse rate: 128 Medications: IV Ceftriaxone, Azithromycin Clinical findings show: (please check applicable parameters) Infection, known /suspected, with some of the following indicators; Specify the infection: 3 General parameters [ ] Fever (core temp >38.30C or 100.40F) [ ] Hypothermia (core temp <36C) [ ] Heart rate >90 bpm [ ] Tachypnea: >20 bpm or pCO2 < 32 mmHg [ ] Altered mental status [ ] Significant edema / +ve fluid balance (>20 ml/kg 24 h) [ ] Hyperglycemia (Bl. glucose >110 mg/dl) w/o diabetes Inflammatory parameters [ ] Leukocytosis (white blood cell count >12,000/l) [ ] Leukopenia (white blood cell count <4,000/l) [ ] Bandemia (immature WBC > 10%) [ ] Leucocyte Left Shift [ ] Plasma procalcitonin>2 SD above the normal value Hemodynamic and tissue perfusion parameters [ ] Arterial hypotension(SBP <90 mmHg, MAP <70 mmHg,or a SBP drop >40 mmHg in adults) [ ] Hyperlactatemia (>3 mmol/l) [ ] Anion Gap (> 11mEG/l) [ ] Decreased capillary refill or mottling Organ dysfunction parameters [ ] Arterial hypoxemia (PaO2/FIO2 <300) [ ] Creatinine increase =0.5 mg/dl [ ] Acute oliguria (urine output <0.5 ml | kg |h or 45 mM/l for at least 2 hrs) [ ] Coagulation abnormalities (INR >1.5 or activated partial thromboplastin time >60 s) [ ] Ileus (absent jasmeet wel sounds) [ ] Thrombocytopenia (platelet count <100,000/l) [ ] Hyperbilirubinemia (plasma total bilirubin >4 mg/dl) According to the clinical indications above, can Bacteremia be further specified? If so, please indicate below and in your Progress Notes and/ or Discharge Summary. Indicate if the condition was present on admission. PHYSICIAN RESPONSE: [x ] Sepsis [ ] Severe Sepsis [ ] Septic Shock [ ] Septicemia [ ] Sepsis now resolved [ ] SIRS due to non-infectious cause with organ dysfunction [ ] SIRS due to non-infectious cause without organ dysfunction [ ] Other: [ ] Comment/Explanation: Present on Admission: [ x] Yes (Y) [ ] Clinically undeterminable (W) [ ] No (N) [ ] Ruled Out Please also document response in your Progress Notes and/or Discharge Summary and indicate if the condition was present on admission Notes: SIRS/ SIRS WITH ORGAN DYSFUNCTION Systemic inflammatory response syndrome (SIRS) generally refers to the systemic response to trauma/leung or other insult such as Acute Myocardial Infarction, Acute Pancreatitis, and Major Surgery with symptoms including fever, tachycardia , tachypnea, and leukocytosis (1). BACTEREMIA Presence of viable bacteria in the circulating blood (2). This term is reserved for patients that do not manifest above SIRS response. SEPTICEMIA Generally refers to a systemic disease associated with the presence of pathological microorganisms or toxins in the blood, which can include bacteria, viruses, fungi or other organisms (1). SEPSIS Generally refers to SIRS due infection (1). SEVERE SEPSIS Generally refers to sepsis associated with acute organ dysfunction (1). SEPTIC SHOCK Generally refers to circulatory failure associated with severe sepsis (2), and defined as hypotension or hypoperfusion despite adequate fluid resuscitation (1 hour) (3). REFERENCES: 1. [place] [employer]/Society of Critical Care Medicine Consensus Conference. Definitions for sepsis and organ failure and guidelines for the use of innovative therapies in sepsis. Critical Care Med 1992;20:864 - 74. 2. Santhosh doyle MM, Kieran MP, Rolando COMBS, Luis Carlos E, Robin D, Deepak D, Bertin J, Barbara SM , Beck JL, Adali G; International Sepsis Definitions Conference. 2001 SCCM/ESICM/ACCP/ATS/SIS International Sepsis Definitions Conference. Intensive Care Med. 2002;29(4):530-8. Epub 2002Nov 22. Review. PubMed PMID:09297017 3. ICD-9-CM Official Guidelines for Coding and Reporting 4. Medscape Drugs, Diseases and Procedures references 5. [employer] Textbook of Internal Medicine. 18th Edition MTDD
== END 2017-08-29 16:10 | disposition home or self-care (01) | DRG 871 ==
LOC: ED 19:50 → 3A 08-27 00:57
PROVIDERS: ADMIT Internal Medicine; ATTEND Internal Medicine
PROC: 5A09357 Assistance with Respiratory Ventilation, Less than 24 Consecutive Hours, Continuous Positive Airway Pressure (ICD-10-PCS; principal; 2017-08-27)
DX: A41.9 Sepsis, unspecified organism (principal); J96.01 Acute respiratory failure with hypoxia; J90 Pleural effusion, not elsewhere classified; J20.9 Acute bronchitis, unspecified; J45.909 Unspecified asthma, uncomplicated; I45.10 Unspecified right bundle-branch block; D86.9 Sarcoidosis, unspecified; I10 Essential (primary) hypertension; Z85.3 Personal history of malignant neoplasm of breast; Z88.5 Allergy status to narcotic agent; Z90.710 Acquired absence of both cervix and uterus; Z90.12 Acquired absence of left breast and nipple; Z87.891 Personal history of nicotine dependence; Z82.49 Family history of ischemic heart disease and other diseases of the circulatory system; Z88.8 Allergy status to other drugs, medicaments and biological substances
CPT/HCPCS: 36415; 71010; 71275; 80048; 82164; 82550; 82553; 83880; 84484; 85007; 85025; 85379; 87040; 87116; 87430; 93005; 93010; 94640; 94660; 94760; 96365; 96366; 96368; 96375; J0456; J0696; J1650; J1885; J1956; J2270; J2405; J2930; J7050; Q9967